=== PATIENT | female | born 1970 | race Caucasian/White ===

== ENCOUNTER 2021-04-08 08:18 | Day surgery (SDCO) | payer OTHER ==
[~2021-04-08 08:18] MED LIST: ASCORBIC ACID500 MG PO; CERTAGEN1 EACH PO; VITAMIN D3 PO; ZYRTEC10 MG PO
[2021-04-08 16:39] LABS: CORONAVIRUS 2019 SARS-COV-2 NEGATIVE (NEGATIVE); INFLUENZA A NAA NEGATIVE (NEGATIVE)
--- NOTE | 2021-04-09 01:10 | NUR ---
2145: PT STATES HAVING MUSCLE SPASPMS IN L ARM. K JACKIE DIETETICS DIRECTOR NOIFIED.
[2021-04-09 06:37] LABS: HCT 40.2 % (37.0-47.0); HGB 12.8 g/dl (12.5-16.0); MCH 29.6 pg (25.0-31.0); MCHC 31.8 g/dL (32.0-36.0); MCV 93.1 fL (78.0-100.0); MPV 10.4 fL (6.0-9.5); RBC 4.32 M/uL (4.20-5.40); RDW 12.6 % (11.5-14.0); WBC 5.6 K/uL (4.0-10.5)
[2021-04-09 07:01] LABS: BUN/CREAT RATIO (CALC) 16.5 RATIO; CREATININE 0.79 mg/dL (0.51-0.95); POTASSIUM 4.4 mmol/L (3.5-5.1)
[2021-04-09] MEDS ORDERED: PERCOCET 5-3251 EACH PO (13:42)
[2021-04-09] MEDS ORDERED: IBU800 MG PO (13:42)
[2021-04-09] MEDS ORDERED: BACLOFEN 10MG T10 MG PO (13:42)
[2021-04-09] MEDS ORDERED: ZOFRAN4 M1 PO (13:42)
[2021-04-14] MEDS ORDERED: PERCOCET 5-3251 EACH PO (07:20)
== END 2021-04-09 14:51 | disposition home or self-care (01) ==
LOC: FER 08:18 → FMS 13:46
PROVIDERS: Emergency Medicine; ADMIT Hospitalist
DX: S52.032A Displaced fracture of olecranon process with intraarticular extension of left ulna, initial encounter for closed fracture (principal); Z88.8 Allergy status to other drugs, medicaments and biological substances; Z20.822 Contact with and (suspected) exposure to COVID-19; W10.8XXA Fall (on) (from) other stairs and steps, initial encounter; Y92.008 Other place in unspecified non-institutional (private) residence as the place of occurrence of the external cause
CPT/HCPCS: 36415; 73080; 73110; 80048; 96374; 96375; 96376; 99152; G0378; J1170; J1650; J2270; J2405; U0002

== ENCOUNTER → 2021-04-14 | Day surgery (SDC) | payer OTHER ==
[~2021-04-14] MED LIST changes: +BACLOFEN 10MG T10 MG PO; +IBU800 MG PO; +PERCOCET 5-3251 EACH PO; +ZOFRAN4 M1 PO
[2021-04-14 07:17] LABS: HCG (URINE) SCREEN NEGATIVE (NEGATIVE)
== END | disposition home or self-care (01) ==
LOC: FAS 06:01
PROVIDERS: Anesthesiology
DX: S52.032A Displaced fracture of olecranon process with intraarticular extension of left ulna, initial encounter for closed fracture (principal); X58.XXXA Exposure to other specified factors, initial encounter
CPT/HCPCS: 73070; 76000; 84703; 93005; C1713; J0690; J1100; J1170; J1885; J2250; J2405; J2704; J2795; J3010; J7120

== ENCOUNTER → 2021-11-17 | Day surgery (SDC) | payer OTHER ==
[~2021-11-17] VITALS: Ht 170.2 cm; Wt 70.3 kg
[2021-11-17 06:59] LABS: HGB 13.4 g/dl (12.5-16.0); MCH 29.6 pg (25.0-31.0); MCHC 32.7 g/dL (32.0-36.0); MCV 90.7 fL (78.0-100.0); MPV 10.2 fL (6.0-9.5); RBC 4.52 M/uL (4.20-5.40); RDW 12.5 % (11.5-14.0); WBC 4.9 K/uL (4.0-10.5)
[2021-11-17 07:10] LABS: HCG (URINE) SCREEN NEGATIVE (NEGATIVE)
[2021-11-17 07:32] LABS: ALBUMIN 3.8 g/dL (3.4-5.0); BILIRUBIN - TOTAL 0.4 mg/dL (0.2-1.0); BUN/CREAT RATIO (CALC) 16.4 RATIO; CREATININE 0.67 mg/dL (0.51-0.95); GLOBULIN (CALCULATION) 3.1 g/dL; POTASSIUM 3.9 mmol/L (3.5-5.1); TOTAL PROTEIN 6.9 g/dL (6.4-8.2)
== END | disposition home or self-care (01) ==
LOC: FAS 06:24
PROVIDERS: Orthopaedic Surgery
DX: T84.89XA Other specified complication of internal orthopedic prosthetic devices, implants and grafts, initial encounter (principal); M75.02 Adhesive capsulitis of left shoulder; M77.8 Other enthesopathies, not elsewhere classified; Y79.8 Miscellaneous orthopedic devices associated with adverse incidents, not elsewhere classified; Y92.9 Unspecified place or not applicable; Y83.8 Other surgical procedures as the cause of abnormal reaction of the patient, or of later complication, without mention of misadventure at the time of the procedure
CPT/HCPCS: 36415; 80053; 84703; J0690; J1100; J1170; J1885; J2250; J2405; J2704; J3010; J7120